=== PATIENT | female | born 2005 | race Hispanic/Latino ===

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

== ENCOUNTER 2023-05-02 15:54 | Emergency (ER) | payer OTHER ==
--- OUTSIDE RECORDS SUMMARY | 2023-05-02 15:56 | XMS REPORT | Continuity of Care Document ---
:2005 Author Organization [facility] t Address [address] [place] [id number] Care Team Providers Name Role Phone CRISTOFER SANDS Primary Care Physician Unavailable ADAN MANRIQUEZ Attending Clinician Unavailable ADAN MANRIQUEZ Attending Clinician Unavailable Doctor Unassigned, [place] Attending Clinician Unavailable Payers Payer Name Policy Type Policy Number Effective Date Expiration Date [facility] [id number] 2022 CHOICE MEDICAID 00:00:00 Problems Condition Condition Condition Status Onset Resolution Last Treating Co mments Source Name Details Category Date Date Treatment Clinician Date Unspecifie Unspecifie Disease Active U nivers d ovarian d ovarian 05-28 ity of cyst, cyst, 00:00: [place] right side right side 00 Me dical Branch Screening Screening Disease Active Uni vers for iron for iron 05-28 [place] anemia 00 [place] [facility] Allergies, Adverse Reactions, Alerts Allergy Allergy Status Severity Reaction(s) Onset Inactive Treating Comm ents Source Name Type Date Date Clinician NO KNOWN Drug Active [facility] ALLERGIE Class ity of S [facility] Social History Social Habit Start Date Stop Date Quantity Comments Source Exposure to 2022-05-18 2022-05-28 Not sure University SARS-CoV-2 00:00:00 11:18:00 [facility] (event) [place] Alcohol intake 2022-05-28 2022-05-28 Current drinker Unive rsity of 00:00:00 00:00:00 of alcohol [facility] (finding) [place] Tobacco use and 2022-05-28 2022-05-28 Smokeless tobacco Un iversity of exposure 00:00:00 00:00:00 non-user [facility] Sex Assigned At [birth year] Universit y of 00:00:00 00:00:[address] [facility] Smoking Status Start Date Stop Date Source Never smoked tobacco [facility] Medications Ordered Filled Start Stop Current Ordering Indication Dosage Frequency Signature Comments Components Source Medication Medication Date Date Medication? Clinician (SIG) Name Name LOESTRIN FE Yes [id number] 1{tbl} Take 1 Univers (BLISOVI FE 8-05 tablet by ity of ,) 00:00: mouth in [place] as 1 mg-20 mcg 00 the Medical (21)/75 mg morning. Branc h (7) tablet LOESTRIN FE Yes [id number] 1{tbl} Take 1 Univers (BLISOVI FE 8-05 tablet by ity of ,) 00:00: mouth in [place] 1 mg-20 mcg 00 the Medical (21)/75 mg morning. Branc h (7) tablet Nitrofurant Yes TAKE 1 Univ ers oin&Nit. 7-30 CAPSULE BY ity o f Macrocryst 00:00: MOUTH [place] 100 mg 00 EVERY 12 Medical capsule HOURS FOR Branch 10 DAYS Nitrofurant Yes TAKE 1 Univ ers oin&Nit. 7-30 CAPSULE BY ity o f Macrocryst 00:00: MOUTH [place] 100 mg 00 EVERY 12 Medical capsule HOURS FOR Branch 10 DAYS Vital Signs Vital Name Observation Time Observation Value Comments Source Systolic blood 2022-05-28 16:32:00 119 mm[Hg] Univer sity of pressure [facility] Diastolic blood 2022-05-28 16:32:00 73 mm[Hg] Unive rsity of pressure [facility] Heart rate 2022-05-28 16:32:00 73 /min [facility] Body temperature 2022-05-28 16:32:00 [facility].72 [facility] Respiratory rate 2022-05-28 16:32:00 18 /min [facility] [place] [facility] Body height 2022-05-28 16:32:00 160 cm [facility] Body weight 2022-05-28 16:32:00 52.164 kg [facility] BMI 2022-05-28 16:32:00 20.37 kg/m2 [facility] Body mass index 2022-05-28 16:32:00 35.21 % Unive rsity of (BMI) [Percentile] [facility] Per age and sex Branch Procedures This patient has no known procedures. Encounters Start End Encounter Admission Attending Care Care Encounter Source Date/Time Date/Time Type Type Clinicians Facility Department ID 2022-05-31 2022-05-31 Outpatient R [facility] [id number] Univers 12:15:00 12:15:00 [facility] [place] [facility] 2022-05-28 2022-05-28 Outpatient R ADAN MANRIQUEZ [facility] B [id number] [facility] 11:30:00 11:57:48 ADAN MANRIQUEZ [facility] [place] [facility] 2022-05-28 2022-05-28 Office [facility] [id number] [facility] 11:30:00 11:57:48 Visit Adan HESTER [id number] it y of WOMEN'[facility] [id number] [address] 2022-05-28 2022-05-28 Letter [facility] [id number] Univers 00:00:00 00:00:00 (Out) Adan HESTER [id number] it y [place] [id number] [facility] [id number] [address] 2022-05-28 2022-05-28 Orders Doctor KATHE [id number] Univers 00:00:00 00:00:00 Only Unassigned, ELLIS [id number] ity of [place] [facility] [id number] [place] as [id number] [facility] 009 Branch Results This patient has no known results.
[2023-05-02] MEDS ORDERED: NA CHLORIDE 0.9% 1,000 ML ONE (16:46)
[2023-05-02] MEDS ORDERED: KETOROLAC 30 MG/ML INJ ONE (16:46)
[2023-05-02] MEDS ORDERED: FAMOTIDINE 20 MG/2 ML VIAL IV ONE (16:46)
[2023-05-02] MEDS ORDERED: ONDANSETRON 4 MG/2 ML VIAL ONE (16:46)
[2023-05-02 16:57] LABS: Absolute Lymphocytes (CBC) 1.3 K/uL (0.7-4.9); Hematocrit 40.1 % (36.0-45.0); Lymphocytes % 14.9 % (15.3-44.8); MCV 94.2 fL (80-100); MPV 8.4 fL (7.6-11.3); RBC Red Blood Cell Count 4.25 M/uL (3.86-4.86)
[2023-05-02 17:01] LABS: Specific Gravity 1.014 (1.005-1.030)
[2023-05-02 17:13] LABS: Albumin 3.9 g/dL (3.4-5.0); Bilirubin Total 1.2 mg/dL (0.2-1.0); Potassium 3.5 mEq/L (3.5-5.1); Protein, Total 8.1 g/dL (6.4-8.2)
[2023-05-02 17:25] LABS: Specific Gravity 1.014 (1.005-1.030); Urine Bacteria <20 /HPF (<20); Urine Bilirubin NEGATIVE (Negative); Urine Blood Negative (Negative); Urine Clarity Extremely Turbid (Clear); Urine Color Light-Yellow (Yellow); Urine Crystals Unidentified Few /HPF (None Seen); Urine Glucose NEGATIVE (Negative); Urine Mucus Slight /HPF (None Seen); Urine Protein NEGATIVE (Negative); Urine RBC <5 /HPF (None Seen); Urine Urobilinogen Normal (Normal); Urine pH 5.5 (5.0-7.0)
--- NOTE | 2023-05-02 17:46 | RAD REPORT ---
EXAM DESCRIPTION: CTAbdomen Pelvis W Contrast - 05/02/2023 5:37 pm CLINICAL HISTORY: ABD PAIN COMPARISON: Abdomen Pelvis W Contrast dated 05/21/2022; Abdomen Pelvis W Contrast dated 04/07/2021 TECHNIQUE: CT of the abdomen and pelvis was performed with IV contrast. All CT scans are performed using dose optimization technique as appropriate and may include automated exposure control or mA/KV adjustment according to patient size. FINDINGS: Lower chest: Mild circumferential thickened distal esophagus which could reflect esophagit is. Liver: Nonspecific periportal edema. Biliary: No biliary ductal dilatation. Stomach: No significant focal abnormality. Duodenum: No significant focal abnormality. Pancreas: No significant abnormality. Spleen: No significant abnormality. Adrenal: No suspicious lesions. Kidney/ureter: No hydronephrosis. No renal calculi. Striated nephrogram bilaterally. No renal abscess identified. Retroperitoneum: No retroperitoneal adenopathy. Vascular: No aneurysm. Bowel: No significant focal abnormality. Peritoneum: No ascites or free air. Bladder: Grossly unremarkable. Reproductive: Enhancing right adnexal collection measuring 6.8 x 3.8 cm. This has increased in size f rom 05/21/2022, previously measuring 4.2 cm in maximal dimension. The enhancement is also new. Bones: No acute fracture. Other: n/a IMPRESSION: 1. Striated nephrogram bilaterally concerning for bilateral pyelonephritis. No hydronephrosis or moreno l abscess is identified. 2. Right adnexal collection previously having the appearance of a simple adnexal cyst but now with in creased peripheral enhancement. This could reflect a tubo-ovarian abscess. Could consider pelvic ultr asound for further evaluation.
[2023-05-02] MEDS ORDERED: CEFTRIAXONE 1000 MG/VIAL ONE (18:34)
[2023-05-02] MEDS ORDERED: Levofloxacin500mg IV 500 MG/100 ML BAG IV ONE (19:21)
--- NOTE | 2023-05-02 19:29 | RAD REPORT ---
EXAM DESCRIPTION: US - Transvaginal Study Probe - 05/02/2023 7:13 pm CLINICAL HISTORY: tuboovarian abscess RO Pelvic pain. COMPARISON: Abdomen Pelvis W Contrast dated 04/07/2021 FINDINGS: The uterus is normal in size, shape and echotexture. The uterus measures measures 7 x 3 x 3.7 cm with volume of 40.7 cc The endometrial stripe measures 7 mm, within normal limb The right ovary measures 3 x 2.9 x 3.4 cm with volume of 15.6 cc. The left ovary was not visualized. Fluid collection the right adnexa measuring 3.2 x 3.6 cm has some internal complexity. This does not have the configuration of a fallopian tube. IMPRESSION: Vascular flow present in the right ovary. Slightly irregular right adnexal fluid collect ion with some complex debris does not have the configuration of a dilated fallopian tube to suggest a tubo-ovarian abscess. It may represent a para-ovarian cyst or peritoneal inclusion cyst. Outpatient referral to gynecology could be considered. Nonvisualized left ovary.
--- NOTE | 2023-05-02 20:14 | ER ---
Nurse's Notes [facility] Name: Ileana Richards Age: 17 yrs Sex: Female : 2005 Arrival Date: 05/02/2023 Time: 15:54 Bed 6 Private MD: Diagnosis: Pyelonephritis acute;Other ovarian cysts Presentation: 05/02 16:16 Chief complaint: Patient states: abdominal pain and nausea onset yesterday. Pt denies cm10 any vomiting, diarrhea or dysuria. no fevers. Coronavirus screen: Vaccine status: Patient reports receiving the 1st dose of the Covid vaccine. Client denies travel out of the [place] in the last 14 days. Ebola Screen: Patient denies travel to an Ebola-affected area in the 21 days before illness onset. No symptoms or risks identified at this time. Initial Sepsis Screen: Does the patient meet any 2 criteria? No. Patient's initial sepsis screen is negative. Does the patient have a suspected source of infection? No. Patient's initial sepsis screen is negative. Risk Assessment: Do you want to hurt yourself or someone else? Patient reports no desire to harm self or others. Onset of symptoms was May 01, 2023. 16:16 Method Of Arrival: Ambulatory cm10 16:16 Acuity: TIM 3 cm10 Triage Assessment: 16:18 General: Appears in no apparent distress. comfortable, Behavior is calm, cooperative. cm10 Pain: Complains of pain in right lower quadrant and left lower quadrant. 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 - Social history:: Smoking status: Patient denies any tobacco usage or history of. Screenin:57 [facility] ED Fall Risk Assessment (Adult) History of falling in the last 3 months, ld1 including since admission No falls in past 3 months (0 pts). Abuse screen: Denies threats or abuse. Denies injuries from another. Nutritional screening: No deficits noted. Tuberculosis screening: No symptoms or risk factors identified. Assessment: 16:52 General: Appears in no apparent distress. comfortable, Behavior is calm, cooperative, ld1 appropriate for age. Pain: Complains of pain in abdomen Pain does not radiate. Pain currently is 8 out of 10 on a pain scale. Quality of pain is described as throbbing. Neuro: Level of Consciousness is awake, alert, obeys commands, Oriented to person, place, time, situation, Appropriate for age. Cardiovascular: Capillary refill < 3 seconds Patient's skin is warm and dry. Respiratory: Airway is patent Respiratory effort is even, unlabored. GI: Abdomen is flat, non-distended, Bowel sounds present X 4 quads. Abd is soft Abdomen is tender to palpation in right lower quadrant and left lower quadrant. : No signs and/or symptoms were reported regarding the genitourinary system. EENT: No signs and/or symptoms were reported regarding the EENT system. Derm: No signs and/or symptoms reported regarding the dermatologic system. Musculoskeletal: No signs and/or symptoms reported regarding the musculoskeletal system. 17:40 Reassessment: Patient is alert, oriented x 3, equal unlabored respirations, skin aa5 warm/dry/pink. Patient states feeling better. Pt back from CT scan, pt notified of wait time for radiology results. . 18:31 Reassessment: Patient is alert, oriented x 3, equal unlabored respirations, skin aa5 warm/dry/pink. Patient states feeling better. Vital Signs: 16:16 BP 133 / 73; Pulse 79; Resp 16; Temp 98.2; Pulse Ox 100% ; Weight 51.71 kg; Height 5 cm10 ft. 3 in. ; Pain 5/10; 16:52 BP 137 / 90; Pulse 83; Resp 18; Pulse Ox 99% on R/A; ld1 17:43 BP 128 / 70; Pulse 80; Resp 16 S; Pulse Ox 97% ; aa5 18:31 BP 124 / 94; Pulse 79; Resp 15 S; Temp 98.2(TE); Pulse Ox 99% on R/A; aa5 18:56 BP 124 / 94; Pulse 81; Resp 18; Pulse Ox 100% on R/A; ld1 20:23 BP 121 / 73; Pulse 83; Resp 18 S; Pulse Ox 100% on R/A; as6 16:16 Body Mass Index 20.19 (51.71 kg, 160.02 cm) cm10 16:16 Pain Scale: Adult cm10 ED Course: 15:54 Patient arrived in ED. rg4 15:57 [facility] sb4 15:57 Jaison Beltran MD is Attending Physician. sb4 16:18 Triage completed. cm10 16:19 Arm band placed on Patient placed in an exam room, on a stretcher. cm10 16:46 Inserted saline lock: 20 gauge in right antecubital area, using aseptic technique. zm Blood collected. 16:47 Initial lab(s) drawn, by me, sent to lab. zm 16:52 Gc Culture Sent. ld1 16:52 Urinalysis w/ reflexes Sent. ld1 16:52 Test, Urine Sent. ld1 16:52 Lipase Sent. ld1 16:52 CMP Sent. ld1 16:52 CBC with Diff Sent. ld1 16:57 Patient has correct armband on for positive identification. Placed in gown. Bed in low ld1 position. Call light in reach. Side rails up X2. Pulse ox on. NIBP on. Door closed. Noise minimized. Warm blanket given. 16:57 No provider procedures requiring assistance completed. ld1 17:38 CT Abd/Pelvis - IV Contrast Only In Process Unspecified. EDMS 18:35 Brandon Padron MD is Attending Physician. sb4 19:14 Transvaginal Study Probe In Process Unspecified. EDMS 20:14 Susan Arshad MD is Referral Physician. [facility] 20:23 Provided Education on: discharge teaching provided . as6 20:23 IV discontinued, intact, bleeding controlled, No redness/swelling at site. Pressure as6 dressing applied. Administered Medications: 16:54 Drug: NS 0.9% IV 1000 ml Route: IV; Rate: 1 bolus; Site: right antecubital; aa5 20:22 Follow up: Response: No adverse reaction; IV Status: Completed infusion; IV Intake: as6 1000ml 16:54 Drug: Famotidine IVP 20 mg Route: IVP; Site: right antecubital; aa5 17:42 Follow up: Response: No adverse reaction aa5 16:54 Drug: Ondansetron IVP 4 mg Route: IVP; Site: right antecubital; aa5 17:42 Follow up: Response: No adverse reaction aa5 17:41 Drug: TORadol - Ketorolac IVP 15 mg Route: IVP; Site: right antecubital; aa5 17:42 Follow up: Response: No adverse reaction aa5 18:24 Not Given (Patient Refused): fentaNYL (PF) IVP 25 mcg IVP once aa5 18:30 Drug: Rocephin IV 1 grams Route: IV; Rate: calculated rate; Site: right antecubital; aa5 20:22 Follow up: Response: No adverse reaction; IV Status: Completed infusion; IV Intake: [id number] 19:22 Drug: levofloxacin IVPB 500 mg Volume: 100 ml; Route: IVPB; Infused Over: 60 mins; rv Site: right antecubital; 20:22 Follow up: Response: No adverse reaction; IV Status: Completed infusion; IV Intake: as6 100ml Medication: 16:57 VIS not applicable for this client. ld1 Intake: 20:22 IV: 50ml; Total: 50ml. as6 20:22 IV: 100ml; Total: 150ml. as6 20:22 IV: 1000ml; Total: 1150ml. as6 Outcome: 20:14 Discharge ordered by . gonzalo 20:23 Discharged to home ambulatory, with significant other. as6 20:23 Condition: stable 20:23 Discharge instructions given to patient, Instructed on discharge instructions, follow up and referral plans. medication usage, Demonstrated understanding of instructions, follow-up care, medications, Prescriptions given X 3. 20:24 Patient left the ED. as6 Signatures: Dispatcher [employer] EDMS Brandon Padron MD MD cha Calderon, Audri, BIRD RN aa5 Eliana Valencia rg4 Daniel Cai RN RN rv Molly Rascon RN RN ld1 Diogo Leung RN RN as6 Karo López Sophia, PA-Kristyn PA-Kristyn toure4 Jennifer López RN RN cm10 Corrections: (The following items were deleted from the chart) 17:34 16:21 Bonnie Walker RN is Primary Nurse. aa5 aa5 17:41 17:41 TORadol - Ketorolac IVP 15 mg IVP in left antecubital aa5 aa5 17:42 16:54 Ondansetron IVP 4 mg IVP in left antecubital aa5 aa5 17:42 16:54 NS 0.9% IV 1000 ml IV at 1 bolus in left antecubital aa5 aa5 17:42 16:54 Famotidine IVP 20 mg IVP in left antecubital aa5 aa5
--- NOTE | 2023-05-02 20:14 | EDPHYS ---
Physician Documentation [facility] Name: Ileana Richards Age: 17 yrs Sex: Female : 2005 Arrival Date: 05/02/2023 Time: 15:54 Bed 6 Private MD: ED Physician Brandon Padron HPI: 05/02 16:24 This 17 yrs old Female presents to ER via Ambulatory with complaints of sb4 Abdominal Pain. 16:24 The patient presents with abdominal pain in the lower abdomen. Onset: The sb4 symptoms/episode began/occurred yesterday. The symptoms do not radiate. Associated signs and symptoms: Pertinent positives: nausea, Pertinent negatives: diarrhea, dysuria, fever, hematuria, vaginal discharge. The symptoms are described as crampy, stabbing. Modifying factors: The symptoms are alleviated by nothing, the symptoms are aggravated by nothing. Severity of pain: in the emergency department the pain is a 5 / 10. The patient has not experienced similar symptoms in the past. The patient has not recently seen a physician. 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 - Social history:: Smoking status: Patient denies any tobacco usage or history of. ROS: 16:24 Constitutional: Negative for fever, chills, and weight loss, Eyes: Negative for injury, sb4 pain, redness, and discharge, Cardiovascular: Negative for chest pain, palpitations, and edema, Respiratory: Negative for shortness of breath, cough, wheezing, and pleuritic chest pain, Back: Negative for injury and pain, : Negative for injury, bleeding, discharge, and swelling, MS/Extremity: Negative for injury and deformity, Skin: Negative for injury, rash, and discoloration. 16:24 Abdomen/GI: Positive for abdominal pain, nausea, Negative for vomiting, diarrhea, constipation. Exam: 16:24 Constitutional: This is a well developed, well nourished patient who is awake, alert, sb4 and in no acute distress. Head/Face: Normocephalic, atraumatic. Eyes: Extra-ocular motions intact. Periorbital areas with no swelling, redness, or edema. Respiratory: Lungs have equal breath sounds bilaterally, clear to auscultation and percussion. No rales, rhonchi or wheezes noted. No increased work of breathing, no retractions or nasal flaring. Abdomen/GI: Soft, non-tender, no distension. Back: No spinal tenderness. No costovertebral tenderness. Full range of motion. Skin: Warm, dry with normal turgor. Normal color with no rashes, no lesions, and no evidence of cellulitis. MS/ Extremity: Pulses equal, no cyanosis. Neurovascular intact. Full, normal range of motion. Vital Signs: 16:16 BP 133 / 73; Pulse 79; Resp 16; Temp 98.2; Pulse Ox 100% ; Weight 51.71 kg; Height 5 cm10 ft. 3 in. ; Pain 5/10; 16:52 BP 137 / 90; Pulse 83; Resp 18; Pulse Ox 99% on R/A; ld1 17:43 BP 128 / 70; Pulse 80; Resp 16 S; Pulse Ox 97% ; aa5 18:31 BP 124 / 94; Pulse 79; Resp 15 S; Temp 98.2(TE); Pulse Ox 99% on R/A; aa5 18:56 BP 124 / 94; Pulse 81; Resp 18; Pulse Ox 100% on R/A; ld1 20:23 BP 121 / 73; Pulse 83; Resp 18 S; Pulse Ox 100% on R/A; as6 16:16 Body Mass Index 20.19 (51.71 kg, 160.02 cm) cm10 16:16 Pain Scale: Adult cm10 MDM: 15:58 Patient medically screened. sb4 16:24 Differential diagnosis: appendicitis, diverticulitis, Dysmenorrhea, Ectopic , sb4 Endometriosis, non-specific abd pain, Pyelonephritis, urinary tract infection, STD, ovarian cyst. 18:34 Data reviewed: vital signs, nurses notes, lab test result(s), radiologic studies, I sb4 have discussed the patient's presentation/case with the attending Emergency Department Physician;. Transition of care: After a detail discussion of the patient's case, care is transferred to Brandon Padron MD. 05/02 16:23 Order name: CBC with Diff; Complete Time: 16:59 sb4 05/02 16:23 Order name: CMP; Complete Time: 17:17 sb4 05/02 16:23 Order name: Lipase; Complete Time: 17:17 sb4 05/02 16:23 Order name: Test, Urine; Complete Time: 17:19 sb4 05/02 16:23 Order name: Urinalysis w/ reflexes; Complete Time: 17:25 sb4 05/02 16:23 Order name: GC (GONORR/CHLAMYDIA) Probe sb4 05/02 16:43 Order name: Gc Culture em1 05/02 17:19 Order name: CT Abd/Pelvis - IV Contrast Only; Complete Time: 17:49 sb4 05/02 19:14 Order name: Transvaginal Study Probe EDMS 05/02 16:23 Order name: IV Saline Lock; Complete Time: 16:46 sb4 05/02 16:23 Order name: Labs collected and sent; Complete Time: 16:46 sb4 Administered Medications: 16:54 Drug: NS 0.9% IV 1000 ml Route: IV; Rate: 1 bolus; Site: right antecubital; aa5 20:22 Follow up: Response: No adverse reaction; IV Status: Completed infusion; IV Intake: as6 1000ml 16:54 Drug: Famotidine IVP 20 mg Route: IVP; Site: right antecubital; aa5 17:42 Follow up: Response: No adverse reaction aa5 16:54 Drug: Ondansetron IVP 4 mg Route: IVP; Site: right antecubital; aa5 17:42 Follow up: Response: No adverse reaction aa5 17:41 Drug: TORadol - Ketorolac IVP 15 mg Route: IVP; Site: right antecubital; aa5 17:42 Follow up: Response: No adverse reaction aa5 18:24 Not Given (Patient Refused): fentaNYL (PF) IVP 25 mcg IVP once aa5 18:30 Drug: Rocephin IV 1 grams Route: IV; Rate: calculated rate; Site: right antecubital; aa5 20:22 Follow up: Response: No adverse reaction; IV Status: Completed infusion; IV Intake: [id number] 19:22 Drug: levofloxacin IVPB 500 mg Volume: 100 ml; Route: IVPB; Infused Over: 60 mins; rv Site: right antecubital; 20:22 Follow up: Response: No adverse reaction; IV Status: Completed infusion; IV Intake: as6 100ml Disposition Summary: 05/02/23 20:14 Discharge Ordered Location: Home [facility] Problem: new [facility] Symptoms: have improved [facility] Condition: Stable [facility] Diagnosis - Pyelonephritis acute [facility] - Other ovarian cysts [facility] Followup: sb4 - With: - When: 2 - 3 days - Reason: Further diagnostic work-up, Recheck today's complaints, Re-evaluation by your physician Discharge Instructions: - Discharge Summary Sheet sb4 - Pyelonephritis, Adult, [id number]-uw-[id number] sb4 - Ovarian Cyst, Czuy-un-Nfat sb4 Forms: - Medication Reconciliation Form [facility] - Thank You Letter [facility] - Antibiotic Education [facility] - Prescription Opioid Use [facility] - Patient Portal Instructions.htm [facility] Prescriptions: - Ibuprofen 600 mg Oral Tablet - take 1 tablet by ORAL route every 6 hours As needed take with food; 30 tablet; [facility] Refills: 0, Product Selection Permitted - levofloxacin 500 mg Oral Tablet - take 1 tablet by ORAL route once daily for 7 days; 7 tablet; Refills: 0, [facility] Product Selection Permitted - Bactrim DS 800-160 mg Oral Tablet - take 1 tablet by ORAL route every 12 hours for 10 days; 20 tablet; Refills: 0, sb4 Product Selection Permitted Signatures: Dispatcher [employer] EDMS Brandon Padron MD MD cha Calderon, Audri, RN RN aa5 Daniel Cai, RN RN Antoinette Heath PA-Kristyn PA-C sb4 Jennifer López RN RN cm10 Diogo Leung RN as6 Corrections: (The following items were deleted from the chart) 19:14 17:56 Transvaginal Ob+US.RAD.BRZ ordered. EDMS EDMS
[2023-05-02 21:20] VITALS: TEMP 98.2
[2023-05-02 21:28] VITALS: O2SAT 100
[2023-05-02 21:29] VITALS: BP 121/73
== END 2023-05-02 20:24 | disposition home or self-care (01) ==
LOC: ER 15:54
DX: N10 Acute pyelonephritis (principal); N83.299 Other ovarian cyst, unspecified side
CPT/HCPCS: 96365; 96361; 85025; 81001; 36415; 81025; 83690; 80053; 87590; 87490; 74177; 76830; 96375; 99284; Q9967; J2405; J7030; J0696

== ENCOUNTER → 2023-11-21 | Emergency (ER) | payer OTHER, SELFPAY ==
[~2023-11-21] MED LIST: CIPROFLOXACIN HCL 500 MG TAB ONE; NA CHLORIDE 0.9% 1,000 ML ONE; PROMETHAZINE INJ 25 MG/ML AMP ONE; metroNIDAZOLE 500 MG TABLET ONE
--- OUTSIDE RECORDS SUMMARY | 2023-11-21 00:55 | XMS REPORT | Continuity of Care Document ---
Author Name Unknown Address [address] [place] [address] [facility] thconnect Address [address] [place] [address] Care Team Providers Care Medicare Biller Name Role Phone Pcp, Patient Does Not Have A Primary Care Physic valorie Adan Manriquez NP Attending Clinician ADAN MANRIQUEZ Attending Clinician Unavaila ble Doctor Unassigned, [facility] Attending Clinician U navailable Payers Payer Name Policy Type Policy Number Effective Date Expirati on Date Source Problems Condition Name Condition Details Condition Category Status Onset Date Resolution Date Last Treatment Date Treating Clinician Comments Source Unspecifie d ovarian cyst, right side Unspecifie d ovarian cyst, right side Disease Active 05-28 00:00: 00 [facility] Screening for iron deficiency anemia Screening for iron deficiency anemia Disease Active 05-28 00:00: 00 [facility] Allergies, Adverse Reactions, Alerts Allergy Name Allergy Type Status Severity Reaction(s) Onset Date Inactive Date Treating Clinician Comments Source NO KNOWN ALLERGIE S Drug Class Active [facility] Social History Social Habit Start Date Stop Date Quantity Comments [facility] to SARS-CoV-2 (event) 2022-05-18 00:00:00 2022-05-28 11:18:00 Not sure [facility] Alcohol intake 2022-05-28 00:00:00 2022-05-28 00:00:00 Current drinker of alcohol (finding) [facility] History of Social function 2022-05-28 00:00:00 2022-05-28 00:00:00 [facility] Tobacco use and exposure 2022-05-28 00:00:00 2022-05-28 00:00:00 Smokeless tobacco non-user [facility] Sex Assigned At 2005 00:00:00 2005 00:00:00 [facility] Smoking Status Start Date Stop Date Source Never smoked tobacco [facility] Medications Ordered Medication Name Filled Medication Name Start Date Stop Date Current Medication? Ordering Clinician Indication Dosage Frequency Signature (SIG) Comments Components Source LOESTRIN FE (BLISOVI FE ,) 1 mg-20 mcg (21)/75 mg (7) tablet 05-28 00:00: 00 Yes [id number] 1{tbl} Take 1 tablet by mouth in the morning. [facility] LOESTRIN FE (BLISOVI FE 11/12, ,) 1 mg-20 mcg (21)/75 mg (7) tablet 05-28 00:00: 00 Yes [id number] 1{tbl} Take 1 tablet by mouth in the morning. [facility] LOESTRIN FE (BLISOVI FE 11/12, ,) 1 mg-20 mcg (21)/75 mg (7) tablet 05-28 00:00: 00 Yes [id number] 1{tbl} Take 1 tablet by mouth in the morning. [facility] Nitrofurant oin&Nit. Macrocryst 100 mg capsule 05-22 00:00: 00 Yes TAKE 1 CAPSULE BY MOUTH EVERY 12 HOURS FOR 10 DAYS [facility] Nitrofurant oin&Nit. Macrocryst 100 mg capsule 05-22 00:00: 00 Yes TAKE 1 CAPSULE BY MOUTH EVERY 12 HOURS FOR 10 DAYS [facility] Nitrofurant oin&Nit. Macrocryst 100 mg capsule 05-22 00:00: 00 Yes TAKE 1 CAPSULE BY MOUTH EVERY 12 HOURS FOR 10 DAYS [facility] Vital Signs Vital Name Observation Time Observation Value Comments S génesisdenny Systolic blood pressure 2022-05-28 16:32:00 119 mm[Hg] [facility] Diastolic blood pressure 2022-05-28 16:32:00 73 mm[Hg] [facility] Heart rate 2022-05-28 16:32:00 73 /min [facility] Body temperature 2022-05-28 16:32:00 36.72 Cyndie [facility] Respiratory rate 2022-05-28 16:32:00 18 /min [facility] Body height 2022-05-28 16:32:00 160 cm [facility] Body weight 2022-05-28 16:32:00 52.164 kg [facility] BMI 2022-05-28 16:32:00 20.37 kg/m2 [facility] Body mass index (BMI) [Percentile] Per age and sex 2022-05-28 16:32:00 35.21 % [facility] Encounters Start Date/Time End Date/Time Encounter Type Admission Type Attending Clinicians Care Facility Care Department Encounter ID Source 2023-07-20 00:00:00 2023-07-20 00:00:00 Telephone Adan Manriquez [facility] [id number] [facility] 2022-05-31 12:15:00 2022-05-31 12:15:00 Outpatient R [facility] [id number] [facility] 2022-05-28 11:30:00 2022-05-28 11:57:48 Outpatient R ADAN MANRIQUEZ [facility] [id number] [facility] 2022-05-28 11:30:00 2022-05-28 11:57:48 Office Visit Adan Manriquez [facility] [id number] [facility] 2022-05-28 00:00:00 2022-05-28 00:00:00 Letter (Out) Adan Manriquez [facility] [id number] [facility] 2022-05-28 00:00:00 2022-05-28 00:00:00 Orders Only Doctor Unassigned, [facility] [id number] [facility]
[2023-11-21 02:36] LABS: Absolute Lymphocytes (CBC) 0.8 K/uL (0.7-4.9); Hematocrit 46.2 % (36.0-45.0); MCV 93.7 fL (80-100); MPV 8.6 fL (7.6-11.3); Platelets 345 thou/uL (152-406); RBC Red Blood Cell Count 4.93 M/uL (3.86-4.86)
[2023-11-21 02:54] LABS: Albumin 4.2 g/dL (3.4-5.0); Bilirubin Total 1.6 mg/dL (0.2-1.0); Protein, Total 8.7 g/dL (6.4-8.2)
[2023-11-21 03:00] LABS: Potassium 3.7 mEq/L (3.5-5.1)
[2023-11-21 03:31] LABS: Specific Gravity 1.013 (1.005-1.030); Urine Bilirubin NEGATIVE (Negative); Urine Blood Negative (Negative); Urine Clarity Clear (Clear); Urine Color Light-Yellow (Yellow); Urine Glucose NEGATIVE (Negative); Urine Protein NEGATIVE (Negative); Urine Urobilinogen Normal (Normal); Urine pH 5.5 (5.0-7.0)
[2023-11-21 03:32] LABS: Specific Gravity 1.013 (1.005-1.030)
[2023-11-21 04:14] LABS: Blood Morphology Comment NOT SEEN (NOT SEEN); Platelet Estimate ADEQ
--- NOTE | 2023-11-21 04:51 | EDPHYS ---
Physician Documentation [facility] Name: Ileana Richards Age: 18 yrs Sex: Female : 2005 Arrival Date: 11/21/2023 Time: 00:53 Bed 17 Private MD: ED Physician Jaison Beltran HPI: 11/21 04:13 This 18 yrs old Female presents to ER via Ambulatory with complaints of rn Vomiting. 04:13 The patient presents to the emergency department with nausea, vomiting, abdominal pain, rn of the right lower quadrant and left lower quadrant. Onset: The symptoms/episode began/occurred yesterday. Possible causes: unknown. The symptoms are aggravated by nothing. The symptoms are alleviated by nothing. Associated signs and symptoms: Pertinent positives: abdominal pain, constipation, nausea, vomiting, Pertinent negatives: GI bleeding. Severity of symptoms: At their worst the symptoms were moderate in the emergency department the symptoms have improved. The patient has experienced a previous episode. 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 Flu vaccine is not up to date. - Social history:: Smoking status: Patient denies any tobacco usage or history of. Patient uses alcohol, occasionally. Patient/guardian denies using street drugs. - Family history:: not pertinent. - Hospitalizations: : No recent hospitalization is reported. ROS: 04:13 Constitutional: Negative for fever, chills, and weight loss, Eyes: Negative for injury, rn pain, redness, and discharge, Neck: Negative for injury, pain, and swelling, Cardiovascular: Negative for chest pain, palpitations, and edema, Respiratory: Negative for shortness of breath, cough, wheezing, and pleuritic chest pain, Abdomen/GI: Positive for lower abdominal pain/nausea/vomiting/constipation Back: Negative for injury and pain, : Negative for injury, bleeding, discharge, and swelling, MS/Extremity: Negative for injury and deformity, Neuro: Negative for headache, weakness, numbness, tingling, and seizure, Exam: 04:13 Constitutional: This is a well developed, well nourished patient who is awake, alert, rn and in no acute distress. Cardiovascular: Tachycardic, regular. No pulse deficits. Respiratory: No increased work of breathing, no retractions or nasal flaring. Abdomen/GI: Soft, no focal tenderness or guarding. No peritoneal signs. Neuro: Awake and alert, GCS 15 Vital Signs: 01:22 BP 115 / 75; Pulse 110; Resp 17 S; Temp 98.1(TE); Pulse Ox 95% on R/A; Weight 51.71 kg lg3 (R); Height 5 ft. 3 in. (R); 01:22 Body Mass Index 20.19 (51.71 kg, 160.02 cm) lg3 Zack Coma Score: 02:24 Eye Response: spontaneous(4). Motor Response: obeys commands(6). Verbal Response: nw1 oriented(5). Total: 15. MDM: 01:02 Patient medically screened. rn 04:49 Differential diagnosis: Nonspecific abd pain, gastritis, pancreatitis, appendicitis, rn diverticulitis, viral gastroenteritis, gastroenteritis. Differential diagnosis: cholecystitis. Data reviewed: vital signs, nurses notes. Data reviewed: lab test result(s), radiologic studies, CT scan, and as a result, I will discharge patient. Counseling: I had a detailed discussion with the patient and/or guardian regarding the historical points, exam findings, and any diagnostic results supporting the discharge/admit diagnosis, lab results, radiology results, the need for outpatient follow up, to return to the emergency department if symptoms worsen or persist or if there are any questions or concerns that arise at home. Response to treatment: the patient's symptoms have markedly improved after treatment, and as a result, I will discharge patient. Special discussion: Based on the patient's Hx, exam, and Dx evaluation, there is no indication for emergent surgery or inpatient Tx. It is understood by the patient/guardian that if the Sx's persist or worsen they need to return immediately for re-evaluation. I discussed with the patient/guardian in detail that at this point there is no indication for admission to the hospital. It is understood, however, that if the symptoms persist or worsen the patient needs to return immediately for re-evaluation. ED course: CT shows possible enterocolitis. No obstruction. No surgical indication. White blood cell count mildly elevated. Patient markedly improved with fluids and Phenergan. Will discharge home with antibiotics and as needed Zofran with return precautions.. 11/21 01:30 Order name: CBC with Diff; Complete Time: 04:45 rn 11/21 01:30 Order name: CMP; Complete Time: 03:42 rn 11/21 01:30 Order name: Lipase; Complete Time: 03:42 rn 11/21 01:30 Order name: Test, Urine; Complete Time: 03:42 rn 11/21 01:30 Order name: Urinalysis w/ reflexes; Complete Time: 03:42 rn 11/21 02:39 Order name: Manual Differential; Complete Time: 04:45 EDMS 11/21 01:30 Order name: CT Abd/Pelvis - IV Contrast Only rn 11/21 01:30 Order name: IV Saline Lock; Complete Time: 02:16 rn 11/21 01:30 Order name: Labs collected and sent; Complete Time: 02:16 rn Administered Medications: 02:16 Drug: NS 0.9% IV 1000 ml IV at 1 bolus Per protocol; 1000 mL bolus Route: IV; Rate: 1 nw1 bolus; Site: right wrist; 02:16 Drug: Promethazine IVP 12.5 mg IVP once Route: IVP; Site: right wrist; nw1 Disposition Summary: 11/21/23 04:51 Discharge Ordered Notes: Location: Home rn Problem: new rn Symptoms: have improved rn Condition: Stable rn Diagnosis - Infectious gastroenteritis and colitis, unspecified rn - Nausea with vomiting, unspecified rn Followup: rn - With: Private Physician - When: As needed - Reason: Recheck today's complaints, Re-evaluation by your physician Discharge Instructions: - Discharge Summary Sheet rn - Nausea and Vomiting, Adult rn - Viral Gastroenteritis, Adult rn - Colitis rn Forms: - Medication Reconciliation Form rn - Thank You Letter rn - Antibiotic return to factory clerk - Prescription Opioid Use rn - Patient Portal Instructions rn - Leadership Thank You Letter rn Prescriptions: - Flagyl 500 mg Oral tablet - take 1 tablet ORAL route every 8 hours for 7 days; 21 tablet; Refills: 0, rn Product Selection Permitted - Cipro 500 mg Oral Tablet - take 1 tablet ORAL route every 12 hours for 7 days; 14 tablet; Refills: 0, rn Product Selection Permitted - promethazine 25 mg Oral tablet - take 1 tablet ORAL route every 6 hours As needed; 12 tablet; Refills: 0, rn Product Selection Permitted Signatures: Dispatcher [employer] Jaison Jara MD MD rn Able, Lacie, RN RN lg3 Fabiola Hernandez RN RN nw1
--- NOTE | 2023-11-21 04:51 | ER ---
Nurse's Notes [facility] Name: Ileana Richards Age: 18 yrs Sex: Female : 2005 Arrival Date: 11/21/2023 Time: 00:53 Bed 17 Private MD: Diagnosis: Infectious gastroenteritis and colitis, unspecified;Nausea with vomiting, unspecified Presentation: 11/21 01:20 Chief complaint: Patient states: N/V, ABD pain and constipation beginning yesterday lg3 morning with dizziness and weakness. took 8mg Zofran 0030. Coronavirus screen: Client denies travel out of the [place] in the last 14 days. At this time, the client does not indicate any symptoms associated with coronavirus-19. Ebola Screen: No symptoms or risks identified at this time. Risk Assessment: Do you want to hurt yourself or someone else? Patient reports no desire to harm self or others. Onset of symptoms was November 20, 2023. 01:20 Method Of Arrival: Ambulatory lg3 01:20 Acuity: TIM 3 lg3 Triage Assessment: 01:22 General: Appears in no apparent distress. uncomfortable, Behavior is calm, cooperative. lg3 Pain: Complains of pain in abdomen Pain does not radiate. Also complains of decreased appetite, constipation, nausea. 01:22 EENT: No deficits noted. No signs and/or symptoms were reported regarding the EENT lg3 system. Neuro: No deficits noted. Roger Agitation-Sedation Scale (RASS): 0 - Alert and Calm Level of Consciousness is awake, alert, obeys commands, Oriented to person, place, time, situation. Cardiovascular: No deficits noted. Denies chest pain, shortness of breath, Capillary refill < 3 seconds Clubbing of nail beds is absent JVD is absent Patient's skin is warm and dry. Respiratory: No deficits noted. Airway is patent Respiratory effort is even, unlabored, Respiratory pattern is regular, symmetrical. GI: No deficits noted. Abdomen is round non-distended, Reports lower abdominal pain, upper abdominal pain, constipation, cramping, nausea, vomiting. : No deficits noted. No signs and/or symptoms were reported regarding the genitourinary system. Derm: No deficits noted. No signs and/or symptoms reported regarding the dermatologic system. Skin is intact, is healthy with good turgor, Skin is dry, Skin is normal, Skin temperature is warm. Musculoskeletal: No deficits noted. No signs and/or symptoms reported regarding the musculoskeletal system. Circulation, motion, and sensation intact. Range of motion: intact in all extremities. 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 Flu vaccine is not up to date. - Social history:: Smoking status: Patient denies any tobacco usage or history of. Patient uses alcohol, occasionally. Patient/guardian denies using street drugs. - Family history:: not pertinent. - Hospitalizations: : No recent hospitalization is reported. Screenin:24 [facility] ED Fall Risk Assessment (Adult) History of falling in the last 3 months, nw1 including since admission No falls in past 3 months (0 pts) Confusion or Disorientation No (0 pts) Intoxicated or Sedated No (0 pts) Impaired Gait No (0 pts) Mobility Assist Device Used No (0 pt) Altered Elimination No (0 pt) Score/Fall Risk Level 0 - 2 = Low Risk Oriented to surroundings, Maintained a safe environment, Educated pt \T\ family on fall prevention, incl call for assistance when getting out of bed, Assessed \T\ reinforced patient's understanding of fall precautions, Provided non-skid footwear, Hourly rounding (assess needs \T\ fall precautionary measures) done. Abuse screen: Denies threats or abuse. Denies injuries from another. Nutritional screening: No deficits noted. Tuberculosis screening: No symptoms or risk factors identified. Assessment: 01:39 Reassessment: Report received from BIRD Menjivar. nw1 02:24 General: Appears in no apparent distress. comfortable, slender, Behavior is calm, nw1 cooperative, appropriate for age. Pain: Complains of pain in abdomen. Neuro: No deficits noted. Level of Consciousness is awake, alert, obeys commands, Oriented to person, place, time, situation, Appropriate for age. Cardiovascular: Heart tones present Capillary refill < 3 seconds in bilateral fingers Rhythm is sinus rhythm. Respiratory: No deficits noted. Airway is patent Trachea midline Respiratory effort is even, unlabored, Respiratory pattern is regular, symmetrical. GI: Reports constipation, nausea, vomiting. GI: Abdomen is flat, Bowel sounds present X 4 quads. : Denies burning with urination, cramping discharge, inability to void, incontinence, pain urinary frequency, urgency, vaginal bleeding, vaginal itching. Derm: No deficits noted. No signs and/or symptoms reported regarding the dermatologic system. Musculoskeletal: No deficits noted. No signs and/or symptoms reported regarding the musculoskeletal system. Vital Signs: 01:22 BP 115 / 75; Pulse 110; Resp 17 S; Temp 98.1(TE); Pulse Ox 95% on R/A; Weight 51.71 kg lg3 (R); Height 5 ft. 3 in. (R); 01:22 Body Mass Index 20.19 (51.71 kg, 160.02 cm) lg3 Zack Coma Score: 02:24 Eye Response: spontaneous(4). Motor Response: obeys commands(6). Verbal Response: nw1 oriented(5). Total: 15. ED Course: 00:55 Patient arrived in ED. ag3 01:02 Jaison Beltran MD is Attending Physician. rn 01:22 Triage completed. lg3 01:22 Arm band placed on right wrist. lg3 01:39 Fabiola Hernandez, RN is Primary Nurse. nw1 02:16 CBC with Diff Sent. nw1 02:16 CMP Sent. nw1 02:16 Lipase Sent. nw1 02:16 Test, Urine Sent. nw1 02:16 Urinalysis w/ reflexes Sent. nw1 02:24 Patient has correct armband on for positive identification. Placed in gown. Bed in low nw1 position. Call light in reach. Side rails up X2. Adult w/ patient. Provided Education on: POC. Client placed on continuous cardiac and pulse oximetry monitoring. NIBP monitoring applied. gambling monitor on. Pulse ox on. NIBP on. Door closed. Warm blanket given. 02:24 No provider procedures requiring assistance completed. Inserted saline lock: 20 gauge nw1 in right wrist, using aseptic technique. Blood collected. 02:29 CBC with Diff Sent. nw1 02:29 CMP Sent. nw 02:29 Lipase Sent. nw1 04:01 CT Abd/Pelvis - IV Contrast Only In Process Unspecified. EDMS 05:20 IV discontinued, intact, bleeding controlled, No redness/swelling at site. Pressure nw1 dressing applied. Administered Medications: 02:16 Drug: NS 0.9% IV 1000 ml IV at 1 bolus Per protocol; 1000 mL bolus Route: IV; Rate: 1 nw1 bolus; Site: right wrist; 02:16 Drug: Promethazine IVP 12.5 mg IVP once Route: IVP; Site: right wrist; nw1 Medication: 02:24 VIS not applicable for this client. nw1 Outcome: 04:51 Discharge ordered by . rn 05:20 Discharged to home ambulatory, with family, nw1 05:20 Condition: stable 05:20 Discharge instructions given to patient, Instructed on discharge instructions, medication usage, Demonstrated understanding of instructions, follow-up care, medications, Prescriptions given X 3, 05:22 Patient left the ED. nw1 Signatures: Dispatcher [employer] EDMS Jaison Beltran MD MD rn Gomez, Alice 3 Tiara Lindquist RN RN lg3 Fabiola Hernandez RN RN nw1 Corrections: (The following items were deleted from the chart) 01:26 01:22 Pain: Complains of pain in abdomen Pain does not radiate. lg3 lg3
[2023-11-21 05:56] VITALS: BP 115/75; TEMP 98.1; O2SAT 95
--- NOTE | 2023-11-21 13:24 | RAD REPORT ---
EXAM DESCRIPTION: CT - Abdomen Pelvis W Contrast - 11/21/2023 6:44 am CLINICAL HISTORY: Female, 18 years old, ABD PAIN COMPARISON: 05/02/2023 TECHNIQUE: CT acquisition of the abdomen and pelvis following the administration of IV contrast. Cor onal and sagittal reformatted images provided. This exam was performed according to departmental dose -optimization program which includes automated exposure control, adjustment of the mA and/or kV accor ding to patient size, and/or use of iterative reconstruction technique. FINDINGS: SUPPORTIVE DEVICES: None. LOWER CHEST: No significant abnormality within the lower chest. ABDOMEN AND PELVIS: Liver: Hypoattenuation along the falciform ligament compatible with focal fatty infiltration. Gallbladder and bile ducts: Normal. Pancreas: Normal. Spleen: Normal. Adrenal glands: Normal. Kidneys and ureters: Normal. Bladder: Normal. Reproductive organs: Unremarkable. GI tract: Fluid-filled distal esophagus and stomach. A majority of the mid to distal small bowel and proximal large bowel loops are gas and fluid-filled with short air-fluid levels. No evidence of bowel wall thickening, obstruction, or appendicitis. Lymph nodes: No evident adenopathy. Peritoneum: Physiologic volume of pelvic ascites. No evidence of fluid collection or free air. Abdominal wall: No significant hernia. Vessels: Unremarkable. MUSCULOSKELETAL: No acute osseous abnormality. IMPRESSION: 1. CT appearance of large and small bowel loops can be seen in the setting of enteriti s/enterocolitis. 2. Fluid-filled distal esophagus compatible with reflux disease, unless fluid ingested immediately before exam. 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 The interpreting r adiologist is fully responsible for the content of the report.
== END ==
LOC: ER 00:53
DX: A09 Infectious gastroenteritis and colitis, unspecified (principal)
CPT/HCPCS: 36415; 74177; 80053; 81003; 81025; 83690; 85025; J2550; J7030; Q9967